=== PATIENT | male | born 1940 | race Caucasian/White ===

== ENCOUNTER 2017-11-11 07:00 | Outpatient (CLI) | payer MEDICARE ==
[2017-11-11 07:28] LABS: Bilirubin,Urine NEG (Negative); Blood,Urine NEG (Negative); Color,Urine Yellow (Yellow); Protein,Urine <15 mg/dL mg/dL (Negative); RBC,Urine < 1.0 /HPF (0.0-6.0); Urobilinogen,Urine < 2.0 mg/dL (<2.0); WBC,Urine < 1.0 /HPF (0.0-6.0)
[2017-11-11 07:48] LABS: BUN/Creatinine Ratio 27; Blood Urea Nitrogen 30 mg/dL (9-20); Calcium 10.1 mg/dL (8.4-10.2); Hemolysis Index 3
== END 2017-11-11 07:01 | disposition home or self-care (01) ==
LOC: LAB 07:00
PROVIDERS: ATTEND Internal Medicine Nephrology
DX: I12.9 Hypertensive chronic kidney disease with stage 1 through stage 4 chronic kidney disease, or unspecified chronic kidney disease (principal); N18.3 Chronic kidney disease, stage 3 (moderate); Z87.891 Personal history of nicotine dependence; Z90.49 Acquired absence of other specified parts of digestive tract
CPT/HCPCS: 36415; 80048; 81001

== ENCOUNTER 2018-04-27 19:23 | Emergency (ER) | payer MEDICARE ==
--- NOTE | 2018-04-27 19:38 | Emergency Department Report ---
Blank Doc - Documentation Documentation: This is a 77-year-old male that presents with unable to have a bowel movement for 4 days. Denies any abdominal pain, nausea or vomiting. This initial assessment diagnostic orders/clinical plan/treatment(s) is/are subject to change based on patient's health status, clinical progression and re- assessment by fellow clinical providers in the ED. Further treatment and workup at subsequent clinical providers discretion. Patient/guardians urged not to elope from ED s their condition may be serious if not clinically assessed and managed. Initial orders include: 1-Patient sent to [facility] for further evaluation and treatment 2- XR abdominal
[2018-04-27 19:42] VITALS: BP 130/74
--- NOTE | 2018-04-27 21:15 | Emergency Department Report ---
ED General Adult HPI - General Chief complaint: Abdominal Pain Stated complaint: CONSTIPATION Time Seen by Provider: 04/27/18 19:34 Source: patient, family, computer forensics examiner (computer forensics examiner present) Mode of arrival: Ambulatory Limitations: Language Barrier - History of Present Illness Initial comments: Shook Machine Operator present Patient is here with his family does not speak Hungarian therefore computer forensics examiner provided. He reports constipation 4 days. He said he uses qsid-txg-[id number] medication without any help. He denies any abdominal back pain. Denies any urinary burning frequency or urgency. Denies any chest pain or shortness of breath. He said he just has not been able to go to the bathroom for 4 days. Denies any nausea or vomiting or any fever or chills. Pain is 0/10. He reports that he gets the urge to go but he does not want to sit down. MD Complaint: constipation Onset/Timin -: days(s) Severity scale (0 -10): 0 Associated Symptoms: other (constipation). denies: confusion, chest pain, cough, diaphoresis, fever/chills, headaches, loss of appetite, malaise, nausea/vomiting, rash, seizure, shortness of breath, syncope, weakness Treatments Prior to Arrival: other (nxai-vtx-wzdyrtw medication for constipation) - Related Data Home Medications Medication Instructions Recorded Confirmed Last Taken Alfuzosin HCl [Uroxatral] 10 mg PO QDAY 11/15/12 11/15/12 11/14/12 17:00 Docusate Sodium [Colace CAP] 100 PO DAILY 11/15/12 11/15/12 11/15/12 07:00 Gemfibrozil [Lopid] 600 mg PO DAILY 11/15/12 11/15/12 11/14/12 17:30 Lisinopril/Hydrochlorothiazide 1 tab PO QDAY 11/15/12 11/15/12 11/15/12 09:30 [Zestoretic 10-12.5 mg] Metformin HCl [Metformin HCl ER] 500 mg PO QDAY 11/15/12 11/15/12 11/14/12 12:00 Metoprolol [Lopressor] 25 mg PO DAILY 11/15/12 11/15/12 11/15/12 09:00 Previous Rx's Medication Instructions Recorded Last Taken Type Docusate Sodium [Colace] 100 mg PO BID 30 Days #60 capsule 04/27/18 Unknown Rx Allergies Allergy/AdvReac Type Severity Reaction Status Date / Time No Known Allergies Allergy Unverified 11/15/12 11:43 ED Review of Systems ROS: Stated complaint: CONSTIPATION Other details as noted in HPI Constitutional: denies: chills, fever ENT: denies: throat pain, congestion Respiratory: denies: cough, shortness of breath, wheezing Cardiovascular: denies: chest pain, palpitations, edema, syncope, paroxysmal nocturnal dyspnea Gastrointestinal: constipation. denies: abdominal pain, nausea, vomiting, diarrhea, hematemesis, melena, hematochezia Genitourinary: other (denies any rectal pain). 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 per pt, High Cholesterol - Surgical History Past Surgical History?: Yes Hx Pacemaker: Yes Hx Cholecystectomy: Yes - Family History Family history: hypertension - Social History Smoking Status: Never Smoker Substance Use Type: None - Medications Home Medications: Home Medications Medication Instructions Recorded Confirmed Last Taken Type Alfuzosin HCl [Uroxatral] 10 mg PO QDAY 11/15/12 11/15/12 11/14/12 17:00 History Docusate Sodium [Colace CAP] 100 PO DAILY 11/15/12 11/15/12 11/15/12 07:00 History Gemfibrozil [Lopid] 600 mg PO DAILY 11/15/12 11/15/12 11/14/12 17:30 History Lisinopril/Hydrochlorothiazide 1 tab PO QDAY 11/15/12 11/15/12 11/15/12 09:30 History [Zestoretic 10-12.5 mg] Metformin HCl [Metformin HCl ER] 500 mg PO QDAY 11/15/12 11/15/12 11/14/12 12:00 History Metoprolol [Lopressor] 25 mg PO DAILY 11/15/12 11/15/12 11/15/12 09:00 History Docusate Sodium [Colace] 100 mg PO BID 30 Days #60 capsule 04/27/18 Unknown Rx ED Physical Exam - General Limitations: Language Barrier, Other (interpretive service used) General appearance: alert, in no apparent distress - Head Head exam: Present: atraumatic, normocephalic - Eye Eye exam: Present: normal appearance, PERRL, EOMI Pupils: Present: normal accommodation - ENT ENT exam: Present: normal exam, normal orophraynx, mucous membranes moist - Neck Neck exam: Present: normal inspection, full ROM. Absent: tenderness - Respiratory Respiratory exam: Present: normal lung sounds bilaterally. Absent: respiratory distress, chest wall tenderness - Cardiovascular Cardiovascular Exam: Present: regular rate, normal rhythm, normal heart sounds - GI/Abdominal GI/Abdominal exam: Present: soft, normal bowel sounds. Absent: distended, tenderness, guarding, rebound, rigid, organomegaly, mass, bruit, pulsatile mass, hernia - Extremities Exam Extremities exam: Present: normal inspection, full ROM, normal capillary refill, other (No cce. + 2 pulses in all extremities, no neurovascular compromise). Absent: tenderness, pedal edema, joint swelling - Back Exam Back exam: Present: normal inspection, full ROM, tenderness, other (ambulates without any difficulties). Absent: CVA tenderness (R), CVA tenderness (L), musc le spasm, paraspinal tenderness, vertebral tenderness, rash noted - Neurological Exam Neurological exam: Present: alert, oriented X3, normal gait - Psychiatric Psychiatric exam: Present: normal affect, normal mood - Skin Skin exam: Present: warm, dry, intact, normal color. Absent: rash ED Course Vital Signs 04/27/18 19:35 Temperature 98.2 F Pulse Rate 92 H Respiratory 18 Rate Blood Pressure 130/74 O2 Sat by Pulse 98 Oximetry thank you - Reevaluation(s) Reevaluation #1: 04/27/18 21:20 Patient via computer forensics examiner said that he had a bowel movement while he was here and is good to go and is ready to go home. Denies any abdominal, rectal pain or back pain. He said he wants to go. ED Medical Decision Making - Radiology Data Radiology results: report reviewed, image reviewed X-ray of abdomen 1 view chest dictated by radiologist and report reviewed by myself. Please see details below Findings [facility] [address] [place] [address] XRay Report Signed Patient: SHELDON MAR MR#: [id number] : 1940 Acct:[id number] Age/Sex: 77 / M ADM Date: 04/27/18 Loc: ED Attending Dr: Ordering Physician: ZEKE REEVES NP Date of Service: 04/27/18 Procedure(s): XR abd series w cxr 1V Accession Number(s): [id number] cc: ZEKE REEVES NP Fluoro Time In Minutes: FINAL REPORT PROCEDURE: Abdominal series. TECHNIQUE: Supine and upright views of the abdomen, upright chest. HISTORY: No bowel movement. COMPARISON: No prior studies are available for comparison. FINDINGS: The bowel gas pattern is nonspecific. There are no definite signs of obstruction. There is a fairly large amount of stool within the left side of the colon. This could indicate constipation. There is no pneumoperitoneum. Cholecystectomy clips are present. The soft tissues are unremarkable. The regional skeleton appears intact. The heart size is normal. There is moderate tortuosity and calcification in the thoracic aorta. There is a left-sided pacemaker with dual electrode leads. There is no pleural effusion. IMPRESSION: Nonspecific bowel gas pattern. Fairly large amount of fecal material within the left side of the colon. Transcribed By: MRM Dictated By: YARITZA RAINES MD Electronically Authenticated By: YARITZA RAINES MD Signed Date/Time: 04/27/182141 DD/ 40 TD/TT: 04/27/182140 - Medical Decision Making This is a 77-year-old male via computer forensics examiner explain that he has not had a bowel movement for 4 days and that he use galy-ljs-jsavzkf medication and is not helped him but he reports that while he was waiting in emergency room he had a regular bowel movement and he denies any other complaints. Patient stable and he said he is ready to go home. X-ray of abdomen and chest dictated by radiologist and report reviewed by myself. Normal findings except patient was large amount of stool on the left side. This was explained to patient but he already feels better that he had a bowel movement. Patient said he is feeling a lot better and he was discharged home with prescription for Colace and to follow up with his primary care physician in 2-3 days. - Differential Diagnosis bowel obstruction, constipation, Critical care attestation.: If time is entered above; I have spent that time in minutes in the direct care of this critically ill patient, excluding procedure time. ED Disposition Clinical Impression: Constipation Qualifiers: Constipation type: other constipation type Qualified Code(s): K59.09 - Other constipation Disposition: DC-01 TO HOME OR SELFCARE Is pt being admited?: No Does the pt Need Aspirin: No Condition: Stable Instructions: Constipation (ED), High Fiber Diet (ED) Additional Instructions: Please increase her fluid intake Follow-up with primary care doctor in 2-3 days Take Colace and this will help to keep you bowel movements soft. Follow up with [place] [facility] in 2 days if he continued to have constipation. If you condition worsens, return to the emergency room Por favor aumente yao ingesta de lquidos Seguimiento con el mdico de atencin primaria en 2-3 schrader [place] Colace y esto le ayudar a mantener las deposiciones blandas. Siga con la gastroenterologa atlntica en 2 schrader si l continu tener estreimiento. Si yao condicin empeora, regrese a la jordan de emergencias Prescriptions: Docusate Sodium [Colace] 100 mg PO BID 30 Days #60 capsule Referrals: your, primary care physician [Other] - 2-3 Days [facility] [Provider Group] - 04/29/18 Print Language: KIS[place]
--- NOTE | 2018-04-27 21:42 | XRay Report ---
FINAL REPORT PROCEDURE: Abdominal series. TECHNIQUE: Supine and upright views of the abdomen, upright chest. HISTORY: No bowel movement. COMPARISON: No prior studies are available for comparison. FINDINGS: The bowel gas pattern is nonspecific. There are no definite signs of obstruction. There is a fairly l arge amount of stool within the left side of the colon. This could indicate constipation. There is no pneumoperitoneum. Cholecystectomy clips are present. The soft tissues are unremarkable. The regional skeleton appears intact. The heart size is normal. There is moderate tortuosity and calcification in the thoracic aorta. There is a left-sided pacemaker with dual electrode leads. There is no pleural e ffusion. IMPRESSION: Nonspecific bowel gas pattern. Fairly large amount of fecal material within the left side of the colo n.
== END 2018-04-27 21:43 | disposition home or self-care (01) ==
LOC: ED 19:23
DX: K59.00 Constipation, unspecified (principal); I10 Essential (primary) hypertension; E11.9 Type 2 diabetes mellitus without complications; K21.9 Gastro-esophageal reflux disease without esophagitis; Z79.84 Long term (current) use of oral hypoglycemic drugs; Z90.49 Acquired absence of other specified parts of digestive tract; Z95.0 Presence of cardiac pacemaker
CPT/HCPCS: 74022

== ENCOUNTER 2018-05-02 07:03 | Outpatient (CLI) | payer MEDICARE ==
[2018-05-02 07:42] LABS: BUN/Creatinine Ratio 23; Blood Urea Nitrogen 25 mg/dL (9-20); Calcium 9.5 mg/dL (8.4-10.2); Hemolysis Index 6
== END 2018-05-02 07:04 | disposition home or self-care (01) ==
LOC: LAB 07:03 → CATH 07:03 → LAB 07:04
PROVIDERS: ATTEND Internal Medicine Nephrology
DX: I12.9 Hypertensive chronic kidney disease with stage 1 through stage 4 chronic kidney disease, or unspecified chronic kidney disease (principal); N18.3 Chronic kidney disease, stage 3 (moderate); K21.9 Gastro-esophageal reflux disease without esophagitis
CPT/HCPCS: 36415; 80048

== ENCOUNTER 2019-04-27 07:35 | Outpatient (CLI) | payer MEDICARE ==
[2019-04-27 08:16] LABS: Albumin 4.8 g/dL (3.9-5); BUN/Creatinine Ratio 23; Blood Urea Nitrogen 25 mg/dL (9-20); Calcium 9.9 mg/dL (8.4-10.2); Hemolysis Index 3
== END 2019-04-27 07:36 | disposition home or self-care (01) ==
LOC: LAB 07:35
PROVIDERS: ATTEND Internal Medicine Nephrology
DX: N18.3 Chronic kidney disease, stage 3 (moderate) (principal)
CPT/HCPCS: 36415; 80048; 82040; 84100

== ENCOUNTER 2021-05-15 09:49 | Outpatient (CLI) | payer MEDICARE ==
[2021-05-15 10:55] LABS: Albumin 4.5 g/dL (3.9-5); BUN/Creatinine Ratio 25; Blood Urea Nitrogen 27 mg/dL (9-20); Calcium 9.9 mg/dL (8.4-10.2); Hemolysis Index 8
[2021-05-15 14:18] LABS: Creatinine,Urine 50.2 mg/dL (0.1-20.0); Protein/Creatinine Ratio,Urine 0.1
== END 2021-05-15 09:50 | disposition home or self-care (01) ==
LOC: LAB 09:49
PROVIDERS: ATTEND Student in an Organized Health Care Education/Training Program
DX: I12.9 Hypertensive chronic kidney disease with stage 1 through stage 4 chronic kidney disease, or unspecified chronic kidney disease (principal); R94.4 Abnormal results of kidney function studies; E08.29 Diabetes mellitus due to underlying condition with other diabetic kidney complication; R80.9 Proteinuria, unspecified; E78.5 Hyperlipidemia, unspecified; N25.81 Secondary hyperparathyroidism of renal origin; D63.1 Anemia in chronic kidney disease; N18.30 Chronic kidney disease, stage 3 unspecified
CPT/HCPCS: 36415; 80048; 82040; 82570; 84100; 84156

== ENCOUNTER 2021-11-10 07:10 | Outpatient (CLI) | payer MEDICARE ==
[2021-11-10 07:41] LABS: Hematocrit 37.6 % (35.5-45.6); Mean Corpuscular HGB Conc 35 % (32-34); Mean Corpuscular Volume 91 fl (84-94); Platelet Count 207 K/mm3 (140-440); Red Blood Count 4.14 M/mm3 (3.65-5.03); Red Cell Distribution Width 13.6 % (13.2-15.2)
[2021-11-10 07:57] LABS: Creatinine,Urine 68.7 mg/dL (0.1-20.0); Protein/Creatinine Ratio,Urine 0.09
[2021-11-10 08:23] LABS: Albumin 4.8 g/dL (3.9-5); Calcium 9.6 mg/dL (8.4-10.2)
== END 2021-11-10 07:11 | disposition home or self-care (01) ==
LOC: LAB 07:10
PROVIDERS: ATTEND Internal Medicine
DX: I12.9 Hypertensive chronic kidney disease with stage 1 through stage 4 chronic kidney disease, or unspecified chronic kidney disease (principal); R94.4 Abnormal results of kidney function studies; N18.30 Chronic kidney disease, stage 3 unspecified; E08.29 Diabetes mellitus due to underlying condition with other diabetic kidney complication; R80.9 Proteinuria, unspecified; E78.5 Hyperlipidemia, unspecified; N25.81 Secondary hyperparathyroidism of renal origin; D63.1 Anemia in chronic kidney disease
CPT/HCPCS: 36415; 80048; 82040; 82570; 83970; 84100; 84156; 85027